=== PATIENT | female | born 1975 | race Caucasian/White ===

== ENCOUNTER 2025-01-15 18:20 | Emergency (ER) | payer MEDICAID ==
[~2025-01-15] VITALS: Ht 167.6 cm; Wt 85.6 kg
[2025-01-15 18:33] VITALS: TEMP 97.9
--- NOTE | 2025-01-15 19:05 | RADIOLOGY REPORT ---
EXAM: DI ANKLE, COMPLETE(3VW MIN) REASON FOR EXAM: ANKLE PAIN RIGHT TECHNIQUE: AP, lateral, and oblique views of the right ankle are submitted for review. COMPARISON: None FINDINGS: The bones demonstrate normal mineralization for age. There is no acute fracture or dislocat ion. The ankle mortise is maintained. There is a small ventral calcaneal spur. The soft tissues are unremarkable. IMPRESSION: No acute fracture or dislocation.
--- NOTE | 2025-01-15 20:35 | Physician Documentation ---
History of Present Illness ~ Chief Complaint: Foot pain Stated Complaint: ANKLE PAIN Time Seen by MD: 20:34 HPI Patient presents to the emergency room for evaluation of right ankle pain. She is walking on a trail when she rolled her ankle and felt a pop. Pain was terrible at 1st however she states that has symptoms significantly improving after taking 800 mg of ibuprofen. She is able to ambulate. Tetanus witin 5 years: Yes Medication Reconciliation Allergies: Coded Allergies: erythromycin base (Verified Allergy, Unknown, RASH, 01/15/25) Past Medical History Smoking Status: Never smoker Review of Systems ROS All review of systems negative except as per HPI Physical Exam Vital Signs: Temperature: 97.9, Source: Temporal, Heart Rate: 79, Respiratory Rate: 16, BP: 135/84, Pulse Oximetry: 97, Weight: 85.600 Oxygen Flow Rate: 0 Physical Exam General: Patient is awake, alert, oriented x4 in no acute distress and well appearing.~ Head: Normocephalic and atraumatic. Eyes: Conjunctival normal. EOMI. PERRL. ENT: Mucous membranes moist. Neck: Supple, trachea is midline. Chest: Clear to auscultation bilaterally without rales, rhonchi, or wheezes. There is no accessory muscle use or retractions. Cardiac: RRR without murmurs, gallops, or rubs. Extremities: Mild swelling to right lateral ankle with no tenderness to palpation over malleoli. Neurovascularly intact. Able to flex and extend ankle Progress Results/Orders Results/Orders Orders - JAROD NGUYỄN MD Ankle, Complete(3vw Min) (01/15/25 18:51) Completed Orders - JAROD NGUYỄN MD Ankle, Complete(3vw Min) (01/15/25 18:51) Vital Signs 01/15/25 18:33 Temp 97.9 Pulse 79 Resp 16 B/P (MAP) 135/84 Pulse Ox 97 O2 Flow Rate 0 Medical Decision Making Findings Patient presents to the emergency room for evaluation of ankle pain as per HPI. Differentials include but are not limited to fracture, dislocation, soft tissue injury, sprain, tendinous rupture. X-ray is negative for fracture. Conservative management discussed as well as the need to follow up with a doctor if symptoms fail to improve. Ibuprofen and Tylenol for pain. Departure Disposition: 01 HOME / SELF CARE / HOMELESS Impression: Primary Impression: Ankle sprain Condition: Stable Discharge Instructions: Sprains Referrals: NO PRIMARY CARE PROVIDER (PCP) Education Educated: Patient Educated regarding: diagnosis, treatment, need for follow up Signature Scribe Signature: No scribe Attestation: The note accurately reflects work and decisions made by me.Jarod Nguyễn MD 01/15/25 20:45 JAROD NGUYỄN MD Jan 15, 2025 20:35
[2025-01-15 21:01] VITALS: BP 159/75; PULSE 53; RESP 15; O2SAT 99
== END 2025-01-15 21:02 | disposition home or self-care (01) ==
LOC: ER 18:21
DX: S93.401A Sprain of unspecified ligament of right ankle, initial encounter (principal); Z88.1 Allergy status to other antibiotic agents; X50.1XXA Overexertion from prolonged static or awkward postures, initial encounter; Y93.01 Activity, walking, marching and hiking; Y92.89 Other specified places as the place of occurrence of the external cause; Y99.8 Other external cause status
CPT/HCPCS: 73610; 99283; L1930